=== PATIENT | male | born 1975 | race African-American/Black ===

== ENCOUNTER 2018-05-06 07:55 | Inpatient (IN) ==
[2018-05-06] MEDS ORDERED: Morphine Inj 4 MG/ML Vial IV.PUSH ONE (08:14)
--- NOTE | 2018-05-06 08:27 | ED ---
HPI General Chief Complaint: Chest Pain Stated Complaint: chest pain Time Seen by Provider: 05/06/18 08:14 Source: patient Mode of arrival: ambulatory Limitations: no limitations History of Present Illness HPI narrative: This is a 42-year-old male who presents to the emergency department with 4-5 days of constant chest discomfort in the upper chest bilaterally, nonradiating, associated with some intermittent nausea and shortness of breath. He also has had a productive cough with clear and yellow sputum. He denies any fevers or chills peer he has had some nasal congestion and sore throat. He initially thought he was sick with a cold. The pain gets worse when he coughs but he was unable to sleep last night secondary to the pain so he came to the emergency department. He is supposed to take something for blood pressure but is not currently on any medications. He denies hyperlipidemia, diabetes or drug use. He did smoke cigarettes for about 10 years. Related Data Home Medications Medication Instructions Recorded Confirmed No Known Home Medications 05/06/18 05/06/18 Allergies Allergy/AdvReac Type Severity Reaction Status Date / Time No Known Allergies Allergy Verified 05/06/18 08:00 Review of Systems ROS: all other systems reviewed are negative [facility] Medical History Medical History Hypertension (Acute) Social History Social History Substance History: No History of Abuse Smoking Status: Former smoker How Often Do You Have a Drink Containing Alcohol: 2 to 3 times a week Recent Travel in [facility] within the Last 8 Weeks: No Recent Out of Country Travel within the Last 8 Weeks: No Immunization History Tetanus Immunization: Unsure Exam Narrative Exam Narrative: GENERAL:Well appearing, no acute distress SKIN: Focused skin assessment warm and dry. HEAD: Atraumatic. Normocephalic. EYES: Pupils equal and round. No injection or drainage. ENT: Moist mucous membranes NECK: Trachea midline. CARDIOVASCULAR: Regular rate and rhythm. No murmur appreciated. RESPIRATORY: Clear to auscultation. Breath sounds equal bilaterally. GASTROINTESTINAL: Abdomen soft, non-tender, nondistended. MUSCULOSKELETAL: No obvious deformities. NEUROLOGICAL: Awake and alert. No obvious cranial nerve deficits. Moving all extremities. PSYCHIATRIC: Appropriate mood and affect; insight and judgment normal. Course Initial Documented Vital Signs Temperature 98.4 F 05/06/18 07:56 Pulse Rate 83 05/06/18 07:56 Respiratory Rate 20 05/06/18 07:56 Blood Pressure 218/140 H 05/06/18 07:56 Pulse Oximetry 97 05/06/18 07:56 Last Documented Vital Signs Temperature 98.4 F 05/06/18 07:56 Pulse Rate 86 05/06/18 09:10 Respiratory Rate 16 05/06/18 09:10 Blood Pressure 205/123 H 05/06/18 09:10 Pulse Oximetry 97 05/06/18 09:10 Medical Decision Making MDM Narrative Medical decision making narrative: This is a 42 year old male who presents to the emergency Department with 4-5 days of chest discomfort. His discomfort is somewhat pleuritic and he does have some upper respiratory symptoms, so this may reflect bronchitis or an infectious process, however given his hypertension a cardiac work-up was ordered. He was placed on a monitor and an IV was established. Labs are all reassuring. He Is markedly hypertensive and was given nitroglycerin and lisinopril. I am concerned because his EKG demonstrates biphasic ST segments in the lateral leads and we have no previous EKG. I think it is reasonable to obtain serial cardiac enzymes and consider stress test in this patient as his EKG could suggest ischemia, and this could be an atypical presentation of ACS. Medical Screen Exam Complete: Yes Emergency Medical Condition: Yes Lab Data Result diagrams: 05/06/18 08:30 05/06/18 08:30 Lab Results 05/06/18 05/06/18 Range/Units 08:30 08:30 WBC 4.8 (4.0-11.0) th/mm3 RBC 4.99 (4.50-5.90) mil/mm3 Hgb 14.8 (13.0-17.0) gm/dL Hct 44.3 (39.0-51.0) % MCV 88.9 (80.0-100.0) fL MCH 29.7 (27.0-34.0) pg MCHC 33.4 (32.0-36.0) % RDW 13.2 (11.6-17.2) % Plt Count 167 (150-450) th/mm3 MPV 9.2 (7.0-11.0) fL Neut % (Auto) 48.7 (16.0-70.0) % Lymph % (Auto) 41.4 (9.0-44.0) % [place] % (Auto) 8.2 H (0.0-8.0) % Eos % (Auto) 0.8 (0.0-4.0) % Baso % (Auto) 0.9 (0.0-2.0) % Neut # (Auto) 2.4 (1.8-7.7) th/mm3 Lymph # (Auto) 2.0 (1.0-4.8) th/mm3 [place] # (Auto) 0.4 (0.0-0.9) th/mm3 Eos # (Auto) 0.0 (0.0-0.4) th/mm3 Baso # (Auto) 0.0 (0.0-0.2) th/mm3 WBC Differential . Differential Comment Auto diff final Sodium 139 (136-145) meq/L Potassium 3.9 (3.5-5.1) meq/L Chloride 103 (98-107) meq/L Carbon Dioxide 27.8 (21.0-32.0) meq/L Anion Gap 8 (5-15) meq/L BUN 11 (7-18) mg/dL Creatinine 1.18 (0.60-1.30) mg/dL Estimated GFR 81 L (>89) mL/min Random Glucose 191 H (74-106) mg/dL Calcium 8.7 (8.5-10.1) mg/dL Total Bilirubin 0.4 (0.2-1.0) mg/dL AST 42 H (15-37) U/L ALT 101 H (12-78) U/L Alkaline Phosphatase 76 (45-117) U/L Troponin I Less than 0.02 L (0.02-0.05) ng/mL Total Protein 7.9 (6.4-8.2) g/dL Albumin 4.2 (3.4-5.0) g/dL Imaging Data Radiologist's impression: Chest X-Ray 05/06/18 08:15 CONCLUSION: Negative examination. ECG Data EKG Prior to Arrival: Yes Attestation: I personally reviewed and interpreted this ECG as follows: Prior ECG tracings: not available for review Interpretation: nsr, st elevation in V2 and V3, <2mV, with lateral t-wave depressions and concerning biphasic morphology of st segment in V5 suggesting ischemia. Discharge Plan Discharge Disposition Patient Disposition: ED Admit(ED Internal Use Only) Discharge Condition Condition: Stable Discharge Order Discharge Orders: ED Use Only Admit Order (Routine); Ordered 05/06/18 Ordered By: Samantha Jha Discharge Details Diagnosis: Atypical chest pain Physicians Team ED Provider: Samantha Jha Primary Care Provider: Primary Care Physici,No Rxs /Orders / Referrals /Forms Prescriptions: No Action No Known Home Medications RF: 0 Discharge Instructions Patient Printed Instructions: Chest Pain (ED) Status ED Status: With Doctor
--- NOTE | 2018-05-06 08:42 | XR ---
EXAM DATE: 05/06/2018 8:37 AM EST AGE/SEX: 42 years / Male INDICATIONS: Chest pain. CLINICAL DATA: This is the patient's initial encounter. Patient reports that signs and symptoms have been present for 2 days and indicates a pain score of 7/10. MEDICAL/SURGICAL HISTORY: None. None. COMPARISON: No prior exams available for comparison. FINDINGS: A single AP view of the chest demonstrates the lungs to be symmetrically aerated without evidence of mass, infiltrate or effusion. The cardiomediastinal contours are unremarkable. Osseous structures a re intact. CONCLUSION: Negative examination. Electronically signed by: Mackenzie De MD Board Certified Radiologist 05/06/2018 8:40 AM JORDI T
[2018-05-06 09:04] LABS: Baso % (Auto) 0.9 % (0.0-2.0); Eos % (Auto) 0.8 % (0.0-4.0); Hematocrit 44.3 % (39.0-51.0); Hemoglobin 14.8 gm/dL (13.0-17.0); Lymph % (Auto) 41.4 % (9.0-44.0); Mean Corpuscular HGB Conc 33.4 % (32.0-36.0); Mean Corpuscular Hemoglobin 29.7 pg (27.0-34.0); Mean Corpuscular Volume 88.9 fL (80.0-100.0); Mean Platelet Volume 9.2 fL (7.0-11.0); Mono # (Auto) 0.4 th/mm3 (0.0-0.9); Mono % (Auto) 8.2 % (0.0-8.0); Neut # (Auto) 2.4 th/mm3 (1.8-7.7); Neut % (Auto) 48.7 % (16.0-70.0); Platelet Count 167 th/mm3 (150-450); Red Blood Count 4.99 mil/mm3 (4.50-5.90); Red Cell Distribution Width 13.2 % (11.6-17.2); White Blood Count 4.8 th/mm3 (4.0-11.0)
[2018-05-06 09:29] LABS: Alanine Aminotransferase 101 U/L (12-78)
[2018-05-06 09:32] LABS: Alkaline Phosphatase 76 U/L (45-117); Total Protein 7.9 g/dL (6.4-8.2)
[2018-05-06 09:36] LABS: Albumin 4.2 g/dL (3.4-5.0); Anion Gap 8 meq/L (5-15); Aspartate Aminotransferase 42 U/L (15-37); Blood Urea Nitrogen 11 mg/dL (7-18); Calcium 8.7 mg/dL (8.5-10.1); Carbon Dioxide 27.8 meq/L (21.0-32.0); Chloride 103 meq/L (98-107); Glomerular Filtration Rate 81 mL/min (>89); Glucose,Random 191 mg/dL (74-106); Potassium 3.9 meq/L (3.5-5.1); Sodium 139 meq/L (136-145)
[2018-05-06] MEDS ORDERED: Lisinopril 20 MG Tablet PO ONE (09:44)
[2018-05-06] MEDS ORDERED: Acetaminophen 500 MG Tablet PO PRN (10:37)
[2018-05-06] MEDS ORDERED: amLODIPine 5 MG Tablet PO ONE (11:13)
--- NOTE | 2018-05-06 11:17 | P.HPCA ---
History of Present Illness Primary Care Physician: No Primary Care Physician Chief Complaint: Chest pain History of Present Illness: 42 year old male with history of hypertension, currently not taking medication, presents to ER for further evaluation of chest pain. Recently recovered from "chest cold" 5 days ago. 3 days ago developed generalized chest pain, more pronounced in sternum. Characterized as a sharp "like a knife ripping across my chest." No radiation. No associated symptoms of nausea, vomiting, dyspnea, or diaphoresis. Precipitating factors include coughing or laying on either side. Relieving factors include leaning over, such as on a counter. Laying flat does not make pain better or worse. Duration constant x3 days. Moderate in severity. Denies similar pain in the past. Sick contact include girlfriend and daughter. No known fever, no chills. Reports chest cold resolved with an occasional nonproductive cough. History of hypertension, unfortunately stopped blood pressure medications 2 years ago because "blood pressure normalized." Does not follow with a PCP. Past cardiac testing None Social history Known hypertension, does currently taking medication. No known diabetes or hyperlipidemia. Former "social" smoker, denies ever being a daily smoker. Rare alcohol use, maybe having 1 beer on while watching sports. No recreational drug use. 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 Family history Mother hypertension and diabetes, age 54 cause of uncertain. Vague members mother being diagnosed with some type of cardiac condition. - Diagnosis (1) Pericarditis (2) Hypertension (3) Elevated random blood glucose level Review of Systems All other systems reviewed negative except as stated in HPI [facility] - History History Provided By: Patient - Medical History Medical History: Medical History (Last Updated 05/06/18 @ 12:07 by YANELIS Rodriguez) Hypertension Obesity (BMI 30-39.9) - Family History Family History: Family History (Last Updated 05/06/18 @ 12:08 by YANELIS Rodriguez) Mother Type 2 diabetes mellitus Hypertension - Social History I have reviewed the patient's Social History: Yes - Tobacco History Second Hand Smoke Exposure: No Tobacco Use In Past 30 Days: No Smoking Status: Former smoker (reports former light tobacco smoker, occassional would smoke 1-2 cigarettes "sometimes") - Alcohol History How Often Do You Have a Drink Containing Alcohol: 2 to 3 times a week - Substance Use History Substance History: No History of Abuse - Travel History History of Recent Travel: No Recent Travel in the [place] Within the Last 8 Weeks: No Recent Travel Out of the Country Within the Last 8 Weeks: No - Immunization History Tetanus Immunization: Unsure Medications and Allergies Active Medications: Active Medications Acetaminophen (Tylenol) 500 mg PO Q4H PRN PRN Reason: HEADACHE Ondansetron HCl (Zofran Inj) 4 mg IV.PUSH Q6H PRN PRN Reason: NAUSEA Sodium Chloride (Ns Flush) 2 ml IV.FLUSH UNSCH PRN PRN Reason: FLUSH AFTER USING IV ACCESS Sodium Chloride (Ns Flush) 2 ml IV.FLUSH BID DANIELA Sodium Chloride (Ns Flush) 2 ml IV.FLUSH PRN PRN PRN Reason: FLUSH AFTER USING IV ACCESS Allergies Allergy/AdvReac Type Severity Reaction Status Date / Time No Known Allergies Allergy Verified 05/06/18 08:00 Home Medications Medication Instructions Recorded Confirmed Type No Known Home Medications 05/06/18 05/06/18 History Exam Vital signs: Vital Signs 05/06/18 07:56 05/06/18 08:17 05/06/18 09:10 Temperature 98.4 F Pulse Rate 83 86 Respiratory Rate 20 16 Blood Pressure 218/140 H 205/123 H Pulse Oximetry 97 97 97 05/06/18 10:37 Temperature Pulse Rate 62 Respiratory Rate 18 Blood Pressure 192/122 H Pulse Oximetry 100 Intake & Output 05/05/18 05/06/18 05/06/18 18:59 06:59 18:59 Weight 112.491 kg Narrative: GENERAL: Alert WN, WD, NAD, pleasant obese -Liber[place] male HEAD: NC, AT EYES: Sclera clear, conjunctiva without injection, pupils equal and round ENT: Mucous membranes pink and moist, no nasal discharge or bleeding NECK: Supple, no masses, trachea midline CV: RRR, 1/6 systolic murmur, faint pericardial rub, no JVD, S1-S2. No carotid bruits. Chest wall nontender to palpation. RESP: Clear lungs throughout bilateral, no crackles, wheeze, rhonchi, symmetrical chest rise, nonlabored, able to speak in full sentences ABD: Soft, NT, ND, no masses, positive bowel tones, obese BACK: No scoliosis EXT: Pulses +2x4, no dependent edema MS: Normal tone x4 extremities, nontender, no obvious deformities, full range of motion NEURO: Motor strength 5/5 PSYCH: A+O x3, pleasant affect, appropriate speech, mood, insight and judgment SKIN: Normal turgor, normal texture, no lesions, no rashes, brisk cap refill, even hair distribution Results 05/06/18 08:30 05/06/18 08:30 Cardiac Enzymes 05/06/18 Range/Units 08:30 AST 42 H (15-37) U/L Troponin I Less than 0.02 L (0.02-0.05) ng/mL CBC 05/06/18 Range/Units 08:30 WBC 4.8 (4.0-11.0) th/mm3 RBC 4.99 (4.50-5.90) mil/mm3 Hgb 14.8 (13.0-17.0) gm/dL Hct 44.3 (39.0-51.0) % Plt Count 167 (150-450) th/mm3 Neut # (Auto) 2.4 (1.8-7.7) th/mm3 Lymph # (Auto) 2.0 (1.0-4.8) th/mm3 [place] # (Auto) 0.4 (0.0-0.9) th/mm3 Eos # (Auto) 0.0 (0.0-0.4) th/mm3 Baso # (Auto) 0.0 (0.0-0.2) th/mm3 Comprehensive Metabolic Panel 05/06/18 Range/Units 08:30 Sodium 139 (136-145) meq/L Potassium 3.9 (3.5-5.1) meq/L Chloride 103 (98-107) meq/L Carbon Dioxide 27.8 (21.0-32.0) meq/L BUN 11 (7-18) mg/dL Creatinine 1.18 (0.60-1.30) mg/dL Calcium 8.7 (8.5-10.1) mg/dL AST 42 H (15-37) U/L ALT 101 H (12-78) U/L Alkaline Phosphatase 76 (45-117) U/L Total Protein 7.9 (6.4-8.2) g/dL Albumin 4.2 (3.4-5.0) g/dL Intake and Output 12/05/06/18 05/06/18 22:59 06:59 14:59 Other: Weight 112.491 kg Patient Weight 05/07/18 06:59 Weight 112.491 kg - Imaging and Cardiology Imaging: Impressions Chest X-Ray 05/06/18 08:15 CONCLUSION: Negative examination. EKG interpretations - EKG EKG results cardiology: sinus rhythm (LAD, criteria for LVH, T wave inversion v5 -v6, st changes V2-v4) Caprini VTE Risk Assessment Caprini VTE Risk Assessment: No/Low Risk (score <= 1) Caprini Risk Assessment Model: Point Value = 1 Point Value = 2 Point Value = 3 Point Value = 5 Age 41-60 Minor surgery BMI > 25 kg/m2 Swollen legs Varicose veins or History of unexplained or recurrent spontaneous Oral contraceptives or hormone replacement Sepsis (< 1 month) Serious lung disease, including pneumonia (< 1 month) Abnormal pulmonary function Acute myocardial infarction Congestive heart failure (< 1 month) History of inflammatory bowel disease Medical patient at bed rest Age 61-74 Arthroscopic surgery Major open surgery (> 45 min) Laparoscopic surgery (> 45 min) Malignancy Confined to bed (> 72 hours) Immobilizing plaster cast Central venous access Age >= 75 History of VTE Family history of VTE Factor V Leiden Prothrombin [id number] Lupus anticoagulant Anticardiolipin antibodies Elevated serum homocysteine Heparin-induced thrombocytopenia Other congenital or acquired thrombophilia Stroke (< 1 month) Elective arthroplasty Hip, pelvis, or leg fracture Acute spinal cord injury (< 1 month) Prophylaxis Regimen: Total Risk Factor Score Risk Level Prophylaxis Regimen 0-1 Low Early ambulation 2 Moderate Order ONE of the following: *Sequential Compression Device (SCD) *Heparin 5000 units SQ BID 3-4 Higher Order ONE of the following medications: *Heparin 5000 units SQ TID *Enoxaparin/Lovenox 40 mg SQ daily (WT < 150 kg, CrCl > 30 mL/min) *Enoxaparin/Lovenox 30 mg SQ daily (WT < 150 kg, CrCl > 10-29 mL/min) *Enoxaparin/Lovenox 30 mg SQ BID (WT < 150 kg, CrCl > 30 mL/min) AND/OR *Sequential Compression Device (SCD) 5 or more Highest Order ONE of the following medications: *Heparin 5000 units SQ TID (Preferred with Epidurals) *Enoxaparin/Lovenox 40 mg SQ daily (WT < 150 kg, CrCl > 30 mL/min) *Enoxaparin/Lovenox 30 mg SQ daily (WT < 150 kg, CrCl > 10-29 mL/min) *Enoxaparin/Lovenox 30 mg SQ BID (WT < 150 kg, CrCl > 30 mL/min) AND *Sequential Compression Device (SCD) Assessment and Plan - Assessment (1) Pericarditis Code(s): I31.9 - Disease of pericardium, unspecified Status: Acute Plan: Admitted to chest pain center. Rule out ACS with 2 sets of EKGs and cardiac enzymes. Seen and evaluated by Dr. Noam Felton. Symptoms suggestive of pericarditis. Obtain sed rate. Ibuprofen 800 mg x1 dose now. No further cardiac testing at this time due to acute process. After being ruled out with 2 sets of EKGs and cardiac enzymes plan to discharge home with high dose NSAIDS for 10 days. Instructed to establish with primary care provider for follow-up and to return to ER if he develops a fever of discomfort worsens. (2) Hypertension Code(s): I10 - Essential (primary) hypertension Status: Acute Plan: Discussed in length importance of tight blood pressure control and medication compliance. Lisinopril 20 mg given in ER. Amlodipine 5 mg x1 dose now. Clonidine 0.1 mg every 6 hours as needed for systolic blood pressure greater than 180 or diastolic blood pressure greater than 100. Current blood pressure 190/100. Continue to monitor. Encouraged establishing with primary care provider, weight loss, adhering to low-sodium diet, and increasing daily activity. Long-term possible effects of uncontrolled high blood pressure discussed in length. 1345-blood pressure ranging between sbp 220-230s dbp 110-140. Discussed with Dr. Felton. Plan to transfer service to hospitalist for hypertensive crisis and further monitoring. (3) Elevated random blood glucose level Code(s): R73.09 - Other abnormal glucose Status: Acute Plan: Random blood glucose level 191. Patient made aware and importance of establishing with a PCP for type II diabetes. Strongly encouraged dietary modifications, weight loss, and increasing daily activity. Verbalized understanding. (1) Pericarditis Qualifiers: Pericarditis type: unspecified type Chronicity: acute Qualified Code(s): I30.9 - Acute pericarditis, unspecified (2) Hypertension Qualifiers: Hypertension type: unspecified Qualified Code(s): I10 - Essential (primary) hypertension
--- NOTE | 2018-05-06 11:57 | P.PNCA ---
Subjective Interval history: 42-year-old black male seen in concert with the nurse practitioner. History is documented in her recording is accurate and appropriate. In essence he has a recent history of fairly sharp chest pain that developed following an apparent upper respiratory infection and cough. The pain is now somewhat positional suggestive of possible pericarditis. We also discussed his hypertension and need for ongoing therapy and monitoring. He has ruled out for ACS using standard protocol and because of his probable pericarditis is not a candidate for further evaluation or testing at this time. Medications and Allergies Active Medications: Active Medications Acetaminophen (Tylenol) 500 mg PO Q4H PRN PRN Reason: HEADACHE Amlodipine Besylate (Norvasc) 5 mg PO ONCE ONE Stop: 05/06/18 11:14 Clonidine HCl (Catapres) 0.1 mg PO Q6H PRN PRN Reason: SBP> OR = 180, DBP> OR = 100 Ondansetron HCl (Zofran Inj) 4 mg IV.PUSH Q6H PRN PRN Reason: NAUSEA Sodium Chloride (Ns Flush) 2 ml IV.FLUSH UNSCH PRN PRN Reason: FLUSH AFTER USING IV ACCESS Sodium Chloride (Ns Flush) 2 ml IV.FLUSH BID DANIELA Sodium Chloride (Ns Flush) 2 ml IV.FLUSH PRN PRN PRN Reason: FLUSH AFTER USING IV ACCESS Allergies Allergy/AdvReac Type Severity Reaction Status Date / Time No Known Allergies Allergy Verified 05/06/18 08:00 Home Medications Medication Instructions Recorded Confirmed Type No Known Home Medications 05/06/18 05/06/18 History Physical Exam Vital signs: Vital Signs 05/06/18 07:56 05/06/18 08:17 05/06/18 09:10 Temperature 98.4 F Pulse Rate 83 86 Respiratory Rate 20 16 Blood Pressure 218/140 H 205/123 H Pulse Oximetry 97 97 97 05/06/18 10:37 Temperature Pulse Rate 62 Respiratory Rate 18 Blood Pressure 192/122 H Pulse Oximetry 100 Intake & Output 05/05/18 05/06/18 05/06/18 18:59 06:59 18:59 Weight 112.491 kg Narrative: Obese black male resting comfortably in bed as long as he does not move. Head normocephalic atraumatic Skin warm and dry Eyes PERRLA EOMI sclera clear Mouth mucous membranes moist and well papillated no lesions Neck supple no JVD masses nodes or bruits Chest diminished breath sounds at the bases with some crackles on initial inspiration but this cleared Cardiovascular reveals a regular sinus rhythm very soft 1/6 systolic murmur and no gallop. However, in the left lateral decubitus position a very soft systolic rub was noted Abdomen soft obese nontender no guarding no rebound no hepatosplenomegaly or other masses noted. Extremities no clubbing cyanosis or edema Results 05/06/18 08:30 05/06/18 08:30 Cardiac Enzymes 05/06/18 Range/Units 08:30 AST 42 H (15-37) U/L Troponin I Less than 0.02 L (0.02-0.05) ng/mL CBC 05/06/18 Range/Units 08:30 WBC 4.8 (4.0-11.0) th/mm3 RBC 4.99 (4.50-5.90) mil/mm3 Hgb 14.8 (13.0-17.0) gm/dL Hct 44.3 (39.0-51.0) % Plt Count 167 (150-450) th/mm3 Neut # (Auto) 2.4 (1.8-7.7) th/mm3 Lymph # (Auto) 2.0 (1.0-4.8) th/mm3 [place] # (Auto) 0.4 (0.0-0.9) th/mm3 Eos # (Auto) 0.0 (0.0-0.4) th/mm3 Baso # (Auto) 0.0 (0.0-0.2) th/mm3 Comprehensive Metabolic Panel 05/06/18 Range/Units 08:30 Sodium 139 (136-145) meq/L Potassium 3.9 (3.5-5.1) meq/L Chloride 103 (98-107) meq/L Carbon Dioxide 27.8 (21.0-32.0) meq/L BUN 11 (7-18) mg/dL Creatinine 1.18 (0.60-1.30) mg/dL Calcium 8.7 (8.5-10.1) mg/dL AST 42 H (15-37) U/L ALT 101 H (12-78) U/L Alkaline Phosphatase 76 (45-117) U/L Total Protein 7.9 (6.4-8.2) g/dL Albumin 4.2 (3.4-5.0) g/dL Intake and Output 05/05/18 05/06/18 05/06/18 22:59 06:59 14:59 Other: Weight 112.491 kg Patient Weight 05/07/18 06:59 Weight 112.491 kg - Imaging and Cardiology Imaging: Impressions Chest X-Ray 05/06/18 08:15 CONCLUSION: Negative examination. Assessment and Plan - Plan This patient has ruled out for ACS and clinically presents as an upper respiratory infection followed by protracted cough and then pleuritic and positional chest pain suggestive of pericarditis. No further evaluation will be carried out during this visit but he is instructed to seek follow-up. He will be initiated on anti-inflammatory medication but is instructed to return if he develops a productive cough fever or progressive chest pain.
[2018-05-06 15:14] LABS: Creatine Kinase 149 U/L (39-308)
[2018-05-06] MEDS ORDERED: Bisacodyl 10 MG Supp RECTAL PRN (15:45)
--- NOTE | 2018-05-06 15:45 | P.PN ---
Subjective Interval history: 05/06: Initial consult received from emergency department regarding patient, hypertensive crisis and acute pericarditis. I telephoned and discussed case with Dr. Jha. At that time of the phone conversation, the blood pressure was more controlled with the antihypertensive medications he had received earlier and it was felt that the patient should be downgraded to the hospitalist service. I subsequently was consulted by the chest pain center, [place] and discussed the patient and it was felt the patient would be more appropriate to a hospitalist service at that time, after discussion with Dr Jha. Upon further evaluation, the patient's blood pressure was noted to become elevated , and I was contacted by Dr. Joaquim Richard, Hospitalist, regarding patient's new elevation in blood pressure request for consultation to [facility]. I then accepted consult and went to the ED to evaluate and admit the patient to ICU. Upon evaluation of the patient, the patient was noted to have a blood pressure at that time of 230/113. Patient denied blurry vision headaches or any neurologic symptomatology. I then obtained a medical history and performed a physical . I informed the patient that he would be transferred to the ICU for management of his hypertensive urgency, and possibly be placed on IV medications. The patient at that time asked how many more hours would he have to stay in the hospital as he had obligations. I then relayed to the patient that he was critically ill and in need of being placed in the ICU for close monitoring of his blood pressure. 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 I again urged the patient of the emergent nature of his physical illness and life- threatening elevation in blood pressure requiring ICU admission. The patient again told me that he has obligations and his 2 young daughters are dependent on them and they are awaiting him to pick them up. I informed Dr. Jha of the conversation, at this time no admission to the ICU as the patient refuses to be admitted to the hospital at this time. I informed her that the intensivists are available for reconsultation if needed. I contacted Dr. Joaquim Richard, hospitalist and informed him of the situation that the patient is requesting to go home due to from familial obligations and cannot be admitted to ICU and for management of his hypertensive crisis at this time. I again stressed to patient that it was important that he remain in the hospital and be treated for his life-threatening hypertension. The patient stated he understood but had obligations. After multiple conversations, with multiple physicians the patient agreed to be admitted to ICU. Physical Exam Vital signs: Vital Signs 05/06/18 07:56 05/06/18 08:17 05/06/18 09:10 Temperature 98.4 F Pulse Rate 83 86 Respiratory Rate 20 16 Blood Pressure 218/140 H 205/123 H Pulse Oximetry 97 97 97 05/06/18 10:37 05/06/18 13:08 Temperature Pulse Rate 62 Respiratory Rate 18 Blood Pressure 192/122 H 227/144 H Pulse Oximetry 100 Intake & Output 05/05/18 05/06/18 05/06/18 18:59 06:59 18:59 Weight 112.491 kg Results - Labs CBC & Chem 7: 05/06/18 08:30 05/06/18 08:30 Laboratory Results - last 24 hr 05/06/18 05/06/18 05/06/18 08:30 08:30 12:03 WBC 4.8 RBC 4.99 Hgb 14.8 Hct 44.3 MCV 88.9 MCH 29.7 MCHC 33.4 RDW 13.2 Plt Count 167 MPV 9.2 Neut % (Auto) 48.7 Lymph % (Auto) 41.4 [place] % (Auto) 8.2 H Eos % (Auto) 0.8 Baso % (Auto) 0.9 Neut # (Auto) 2.4 Lymph # (Auto) 2.0 [place] # (Auto) 0.4 Eos # (Auto) 0.0 Baso # (Auto) 0.0 WBC Differential . Differential Comment Auto diff final ESR 3 Sodium 139 Potassium 3.9 Chloride 103 Carbon Dioxide 27.8 Anion Gap 8 BUN 11 Creatinine 1.18 Estimated GFR 81 L Random Glucose 191 H Calcium 8.7 Total Bilirubin 0.4 AST 42 H ALT 101 H Alkaline Phosphatase 76 Total Creatine Kinase Troponin I Less than 0.02 L Total Protein 7.9 Albumin 4.2 05/06/18 13:48 WBC RBC Hgb Hct MCV MCH MCHC RDW Plt Count MPV Neut % (Auto) Lymph % (Auto) [place] % (Auto) Eos % (Auto) Baso % (Auto) Neut # (Auto) Lymph # (Auto) [place] # (Auto) Eos # (Auto) Baso # (Auto) WBC Differential Differential Comment ESR Sodium Potassium Chloride Carbon Dioxide Anion Gap BUN Creatinine Estimated GFR Random Glucose Calcium Total Bilirubin AST ALT Alkaline Phosphatase Total Creatine Kinase 149 Troponin I Less than 0.02 L Total Protein Albumin - Imaging Impressions Chest X-Ray 05/06/18 08:15 CONCLUSION: Negative examination.
[2018-05-06] MEDS ORDERED: niCARdipine Inj 25 MG in Sodium Chlor 0.9% Inj 240 ML IV.CONT PRN (15:54)
--- NOTE | 2018-05-06 16:15 | P.CONCC ---
History of Present Illness Consult date: 05/06/18 Requesting Physician: Joaquim Richard Reason for Consult: Hypertensive Urgency Primary Care Provider: No Primary Care Physician Chief Complaint: Chest pain History of Present Illness: This is a 42-year-old -Finnish male that presented to the chests the ED with complaints of sharp atypical chest pain. The patient was evaluated by the chest pain center and it was felt that the patient had acute pericarditis. In the ED the patient received narcotics and NSAIDs. The patient was noted to have an elevated blood pressure systolic blood pressure in the 200s the patient received several doses of clonidine orally in the a.m. with subsequent decrease in blood pressure appear patient was initially thought to be appropriate for [facility] floor being the blood pressure was then controlled however later in the day the patient's blood pressure began to escalate. Upon my evaluation the patient's blood pressure was 230/113. Patient was scheduled to be admitted to the ICU initially refusing but then subsequently after extensive discussion regarding the life-threatening elevation in blood pressure agreed to be admitted to the ICU. Patient denies any significant past medical history. Review of Systems All other systems reviewed negative except as stated [facility] - History History Provided By: Patient - Medical History Medical History: Medical History (Last Updated 05/06/18 @ 12:07 by YANELIS Rodriguez) Hypertension Obesity (BMI 30-39.9) - Family History Family History: Family History (Last Updated 05/06/18 @ 12:08 by YANELIS Rodriguez) Mother Type 2 diabetes mellitus Hypertension - Tobacco History Second Hand Smoke Exposure: No Tobacco Use In Past 30 Days: No Smoking Status: Former smoker (reports former light tobacco smoker, occassional would smoke 1-2 cigarettes "sometimes") - Alcohol History How Often Do You Have a Drink Containing Alcohol: 2 to 3 times a week - Substance Use History Substance History: No History of Abuse - Travel History History of Recent Travel: No Recent Travel in the [place] Within the Last 8 Weeks: No Recent Travel Out of the Country Within the Last 8 Weeks: No - Immunization History Tetanus Immunization: Unsure Medications and Allergies Active Medications: Active Medications Acetaminophen (Tylenol) 500 mg PO Q4H PRN PRN Reason: HEADACHE Al Hydroxide/Mg Hydroxide (Milk Of Magnesia Liq) 30 ml PO Q12H PRN PRN Reason: Mild Constipation Amlodipine Besylate (Norvasc) 10 mg PO DAILY DANIELA Bisacodyl (Dulcolax Supp) 10 mg RECTAL DAILY PRN PRN Reason: SEVERE CONSITIPATION Chlorhexidine Gluconate (Chlorhexidine 2% Cloth) 3 pack TOPICAL DAILY@0400 DANIELA Stop: 05/12/18 03:59 Chlorhexidine Gluconate (Chlorhexidine 2% Cloth) 3 pack TOPICAL DAILY@0400 PRN PRN Reason: Extra cloth needed Stop: 05/12/18 03:59 Clonidine HCl (Catapres) 0.1 mg PO Q6H PRN PRN Reason: SBP> OR = 180, DBP> OR = 100 Famotidine (Pepcid) 20 mg PO BID DANIELA Famotidine (Pepcid Pf Inj) 20 mg IV.PUSH Q12HR DANIELA Hydralazine HCl (Apresoline Inj) 20 mg IV.PUSH Q4H PRN PRN Reason: SYS BP GREATER THAN 160 MMHG Nicardipine HCl 25 mg/ Sodium (Chloride) 250 mls @ 50 mls/hr IV.CONT TITRATE PRN; Protocol PRN Reason: Per Protocol Labetalol HCl (Trandate) 200 mg PO BID [facility] Lactulose (Lactulose Liq) 30 ml PO DAILY PRN PRN Reason: SEVERE CONSITIPATION Lisinopril (Prinivil) 10 mg PO BID DANIELA Ondansetron HCl (Zofran Inj) 4 mg IV.PUSH Q6H PRN PRN Reason: NAUSEA Senna/Docusate Sodium (Madeline-Colace) 1 tab PO BID [facility] Sennosides (Senokot) 17.2 mg PO Q12H PRN PRN Reason: Moderate Constipation Sodium Chloride (Ns Flush) 2 ml IV.FLUSH UNSCH PRN PRN Reason: FLUSH AFTER USING IV ACCESS Sodium Chloride (Ns Flush) 2 ml IV.FLUSH BID DANIELA Sodium Chloride (Ns Flush) 2 ml IV.FLUSH PRN PRN PRN Reason: FLUSH AFTER USING IV ACCESS Sodium Chloride (Ns Flush) 2 ml IV.FLUSH BID DANIELA Sodium Chloride (Ns Flush) 2 ml IV.FLUSH PRN PRN PRN Reason: FLUSH AFTER USING IV ACCESS Allergies Allergy/AdvReac Type Severity Reaction Status Date / Time No Known Allergies Allergy Verified 05/06/18 08:00 Home Medications Medication Instructions Recorded Confirmed Type No Known Home Medications 05/06/18 05/06/18 History Physical Exam Vital signs: Vital Signs 05/06/18 07:56 05/06/18 08:17 05/06/18 09:10 Temperature 98.4 F Pulse Rate 83 86 Respiratory Rate 20 16 Blood Pressure 218/140 H 205/123 H Pulse Oximetry 97 97 97 05/06/18 10:37 05/06/18 13:08 Temperature Pulse Rate 62 Respiratory Rate 18 Blood Pressure 192/122 H 227/144 H Pulse Oximetry 100 Intake & Output 05/05/18 05/06/18 05/06/18 18:59 06:59 18:59 Weight 112.491 kg - Constitutional no acute distress, obese - Routine HEENT Exam Head: Present: normocephalic Eye: Present: EOMI, PERRL, normal accommodation ENT: Present: mucous membranes moist, dentition normal, nares patent, external ear normal - Routine Neck Exam Present: supple, full ROM - Routine Respiratory Exam Present: CTA bilaterally - Routine Cardiovascular Exam Present: RRR, S1, S2 - Routine Abdominal Exam Present: soft, normoactive bowel sounds (obese) - Routine Extremities Exam Present: full ROM, pulses intact - Routine Skin Exam Present: intact (warm) - Routine Neurological Exam Present: alert, oriented X3, CN II-XII intact, normal reflexes, normal speech - Detailed Neurological Exam: Coma Scale Eye Opening: Spontaneous Verbal Response: Oriented Motor Response: Obey commands Clark Coma Scale Total: 15 - Routine Psychiatric Exam Present: normal affect, normal thought process, cooperative, good insight, good judgment Assessment and Plan - Problem List (1) Hypertensive crisis without congestive heart failure Code(s): I16.9 - Hypertensive crisis, unspecified Status: Acute - Assessment and Plan Plan: Assessment This is a 42-year-old -Finnish male recently with a resolving viral illness with complaints of sharp chest pain thought to be secondary to acute pericarditis now with hypertensive crisis. Patient's blood pressure is significantly elevated, we will admit to ICU. The patient is critically ill. Plan by systems: Neurologic: Neuro checks per ICU protocol Respiratory: Maintain O2 saturation greater than 92% Cardiovascular: Hypertensive crisis Pericarditis Patient received 2 doses of clonidine in the ED, and 1 dose of Norvasc Initiate nicardipine infusion-maintain systolic blood pressure 140-160, patient notably elevated, most likely not normal ranges are elevated Initiating doses of Lopressor 200 mg twice daily, Norvasc 10 mg/day, lisinopril 10 mg twice daily. Provide hydralazine 10 mg every 4 hours as needed for systolic blood pressure greater than 160 and begin weaning nicardipine infusion off Continue ASA Renal: Does not require meet the requirements for Pittman catheter -- Strict I/Os FEN/GI: Cardiac diet Zofran for nausea Famotidine p.o. twice daily Obtain hemoglobin A1c Heme/ID: Monitor CBC No indications for cultures at this time Endocrine: Glucose monitoring per ICU protocol -- SSI Prophylaxis: GI Prophylaxis Famotidine DVT Prophylaxis -- SCDs Heparin 5000 units every 8 hours Lines: Peripheral IVs providing adequate access Dispo: My billing statement This patient remains critically ill with one or more organ systems which are or may become a threat to life. I have spent in excess of 69 minutes discontinuously in the care and management of this patient. This time is exclusive of procedures, and includes, but is not limited to, evaluation of the patient, review of the medical record, discussions with family, consultants, nursing staff, or respiratory therapy, and documentation in the medical record. Code Status: Full Discussed Condition With: Dr. Joaquim Richard, Dr. Samantha Jha, chest pain center COMMUNICATION CENTER COORDINATOR, and SYSTEMS TESTER at bedside
[2018-05-06] MEDS ORDERED: Dextrose 50% in Water 50 ML Vial IV.PUSH PRN (16:19)
[2018-05-06] MEDS: Insulin NovoLOG Aspart Correctional Sugar Inj SQ SCH ×2 (17:10→21:22)
--- NOTE | 2018-05-06 18:00 | ECG ---
Date Performed: 05/06/2018 Time Performed: 08:06:16 PTAGE: 42 years EKG: Sinus rhythm POSSIBLE LEFT ATRIAL ENLARGEMENT MARKED LEFT AXIS DEVIATION POSSIBLE RIGHT VENTRICULAR CONDUCTION DE LAY LEFT VENTRICULAR HYPERTROPHY AND ST-T CHANGE ABNORMAL ECG NO PREVIOUS TRACING DOCTOR: Alex Lazo Interpretating Date/Time 05/06/2018 17:57:48
--- NOTE | 2018-05-06 18:05 | ECG ---
Date Performed: 05/06/2018 Time Performed: 09:36:34 PTAGE: 42 years EKG: Sinus rhythm POSSIBLE LEFT ATRIAL ENLARGEMENT MARKED LEFT AXIS DEVIATION POSSIBLE RIGHT VENTRICULAR CONDUCTION DE LAY POSSIBLE LEFT VENTRICULAR HYPERTROPHY ST DEVIATION AND MODERATE T-WAVE ABNORMALITY, CONSIDER LATE RAL ISCHEMIA Since the previous tracing, no significant change noted ABNORMAL ECG PREVIOUS TRACING : 05/06/2018 08.19 DOCTOR: Alex Lazo Interpretating Date/Time 05/06/2018 18:03:17
--- NOTE | 2018-05-06 18:05 | ECG ---
Date Performed: 05/06/2018 Time Performed: 08:19:38 PTAGE: 42 years EKG: Sinus rhythm POSSIBLE LEFT ATRIAL ENLARGEMENT MARKED LEFT AXIS DEVIATION POSSIBLE RIGHT VENTRICULAR CONDUCTION DE LAY LEFT VENTRICULAR HYPERTROPHY AND ST-T CHANGE Since the previous tracing, no significant change no sampson ABNORMAL ECG PREVIOUS TRACING : 05/06/2018 08.06 DOCTOR: Alex Lazo Interpretating Date/Time 05/06/2018 18:03:48
[2018-05-06] MEDS: hydrALAZINE HCl Inj 20 MG/ML Vial IV.PUSH PRN (19:59)
[2018-05-06] MEDS: Lisinopril 10 MG Tablet PO SCH (20:01)
[2018-05-06] MEDS: Labetalol 200 MG Tablet PO SCH (20:01)
[2018-05-06] MEDS: Famotidine 20 MG Tablet PO SCH (20:01)
[2018-05-06] MEDS: Senna/Docusate Sodium 8.6/50 MG Tablet PO SCH (20:01)
[2018-05-06 20:17] LABS: Creatine Kinase 133 U/L (39-308)
[2018-05-06] MEDS ORDERED: Famotidine PF Inj 20 MG/2 ML Vial IV.PUSH SCH (21:00)
[2018-05-06] MEDS: Heparin - SQ 10,000 UNITS/ML Vial SQ SCH (21:21)
[2018-05-07] MEDS: hydrALAZINE HCl Inj 20 MG/ML Vial IV.PUSH PRN (03:15)
[2018-05-07] MEDS ORDERED: Chlorhexidine Gluconate 2% 1 Pack (2 Cloths) TOPICAL PRN (04:00)
[2018-05-07] MEDS: Chlorhexidine Gluconate 2% 1 Pack (2 Cloths) TOPICAL SCH (05:28)
[2018-05-07] MEDS: Heparin - SQ 10,000 UNITS/ML Vial SQ SCH ×3 (05:29→21:38)
[2018-05-07] MEDS: Famotidine 20 MG Tablet PO SCH ×2 (08:14→21:38)
[2018-05-07] MEDS: Senna/Docusate Sodium 8.6/50 MG Tablet PO SCH ×2 (08:14→21:38)
[2018-05-07] MEDS: amLODIPine 10 MG Tablet PO SCH (08:14)
[2018-05-07] MEDS: Insulin NovoLOG Aspart Correctional Sugar Inj SQ SCH ×4 (08:17→21:45)
[2018-05-07 08:59] LABS: Baso # (Auto) 0.1 th/mm3 (0.0-0.2); Baso % (Auto) 0.9 % (0.0-2.0); Eos % (Auto) 0.2 % (0.0-4.0); Hematocrit 43.2 % (39.0-51.0); Hemoglobin 14.7 gm/dL (13.0-17.0); Lymph # (Auto) 1.6 th/mm3 (1.0-4.8); Lymph % (Auto) 28.5 % (9.0-44.0); Mean Corpuscular HGB Conc 34.1 % (32.0-36.0); Mean Corpuscular Hemoglobin 30.6 pg (27.0-34.0); Mean Platelet Volume 9.4 fL (7.0-11.0); Mono # (Auto) 0.3 th/mm3 (0.0-0.9); Mono % (Auto) 5.6 % (0.0-8.0); Neut # (Auto) 3.6 th/mm3 (1.8-7.7); Neut % (Auto) 64.8 % (16.0-70.0); Platelet Count 179 th/mm3 (150-450); Red Cell Distribution Width 13.6 % (11.6-17.2); White Blood Count 5.6 th/mm3 (4.0-11.0)
[2018-05-07 09:19] LABS: Magnesium 2.1 mg/dL (1.5-2.5); Phosphorus 3.6 mg/dL (2.5-4.9)
[2018-05-07] MEDS: Labetalol 200 MG Tablet PO SCH (09:24)
--- NOTE | 2018-05-07 09:27 | P.PNCC ---
Subjective Subjective Remarks/Hospital Course: This is a 42-year-old -[place] male that presented to the chests the ED with complaints of sharp atypical chest pain. The patient was evaluated by the chest pain center and it was felt that the patient had acute pericarditis. In the ED the patient received narcotics and NSAIDs. The patient was noted to have an elevated blood pressure systolic blood pressure in the 200s the patient received several doses of clonidine orally in the a.m. with subsequent decrease in blood pressure appear patient was initially thought to be appropriate for [facility] floor being the blood pressure was then controlled however later in the day the patient's blood pressure began to escalate. Upon my evaluation the patient's blood pressure was 230/113. Patient was scheduled to be admitted to the ICU initially refusing but then subsequently after extensive discussion regarding the life-threatening elevation in blood pressure agreed to be admitted to the ICU. Patient denies any significant past medical history. 05/07: Patient's blood pressure is reasonably well controlled today. However after the administration of 3 antihypertensives patient had an episode of systolic blood pressure being low in the 80s with near syncopal episode. I will discontinue scheduled labetalol and reduce lisinopril to 5 mg twice daily Objective Vital Signs / I&O: Vital Signs 05/06/18 10:37 05/06/18 13:08 05/06/18 18:00 Temperature Pulse Rate 62 81 Respiratory Rate 18 Blood Pressure 192/122 H 227/144 H Pulse Oximetry 100 05/06/18 19:20 05/06/18 20:00 05/06/18 20:01 Temperature 98.7 F Pulse Rate 78 72 73 Respiratory Rate 18 18 18 Blood Pressure 134/62 Pulse Oximetry 90 L 100 100 05/06/18 20:03 05/06/18 20:49 05/06/18 20:57 Temperature Pulse Rate 70 58 L 68 Respiratory Rate 18 22 16 Blood Pressure 133/73 84/51 L 156/66 H Pulse Oximetry 100 97 93 L 05/06/18 21:00 05/06/18 21:01 05/06/18 21:16 Temperature Pulse Rate 69 74 80 Respiratory Rate 18 16 24 Blood Pressure 160/70 H 160/70 H 94/68 L Pulse Oximetry 96 94 L 95 05/06/18 21:31 05/06/18 21:45 05/06/18 22:00 Temperature Pulse Rate 71 69 72 Respiratory Rate 22 21 22 Blood Pressure 124/70 121/67 Pulse Oximetry 92 L 91 L 91 L 05/06/18 22:04 05/06/18 22:16 05/06/18 22:31 Temperature Pulse Rate 72 76 77 Respiratory Rate 21 22 20 Blood Pressure 156/78 H 145/69 H 168/92 H Pulse Oximetry 92 L 95 92 L 05/06/18 22:45 05/06/18 23:00 05/06/18 23:01 Temperature Pulse Rate 78 76 75 Respiratory Rate 13 17 18 Blood Pressure 161/86 H 174/89 H Pulse Oximetry 96 94 L 93 L 05/06/18 23:16 05/06/18 23:40 05/07/18 00:00 Temperature 97.9 F Pulse Rate 76 72 75 Respiratory Rate 18 22 21 Blood Pressure 184/67 H 164/89 H 142/92 H Pulse Oximetry 92 L 94 L 92 L 05/07/18 00:30 05/07/18 01:00 05/07/18 01:30 Temperature Pulse Rate 79 74 70 Respiratory Rate 33 H 20 23 Blood Pressure 141/75 H 145/95 H 130/85 Pulse Oximetry 98 98 92 L 05/07/18 02:00 05/07/18 02:30 05/07/18 03:00 Temperature Pulse Rate 70 83 75 Respiratory Rate 19 30 H 15 Blood Pressure 147/105 H 136/93 H 186/112 H Pulse Oximetry 95 98 96 05/07/18 03:03 05/07/18 03:22 05/07/18 03:30 Temperature Pulse Rate 76 72 78 Respiratory Rate 23 22 26 H Blood Pressure 176/102 H 163/84 H 158/67 H Pulse Oximetry 97 93 L 94 L 05/07/18 04:00 05/07/18 04:01 05/07/18 06:00 Temperature 97.3 F L Pulse Rate 83 82 73 Respiratory Rate 17 24 Blood Pressure 135/68 Pulse Oximetry 96 96 05/07/18 07:10 Temperature Pulse Rate Respiratory Rate Blood Pressure Pulse Oximetry 96 Intake & Output 05/06/18 05/07/18 05/07/18 18:59 06:59 18:59 Intake Total 0 / 0 50 / 50 Output Total 900 / 900 Balance 0 / 0 -850 / -850 Weight 112 kg 111.6 kg Intake: Oral 0 / 0 50 / 50 Output: Urine 900 / 900 Other: # Voids 1 Date of Last Bowel Movement 05/07/18 # Bowel Movements 0 1 # Incontinent Bowel Movements 0 Weight On Admission 112 kg Result Diagrams: 05/07/18 08:26 05/06/18 08:30 Objective Remarks: - Constitutional no acute distress, obese. Sitting up in chair - Routine HEENT Exam Head: Present: normocephalic Eye: Present: EOMI, PERRL, normal accommodation ENT: Present: mucous membranes moist, dentition normal - Routine Neck Exam Present: supple, full ROM - Routine Respiratory Exam Present: CTA bilaterally - Routine Cardiovascular Exam Present: RRR, S1, S2 - Routine Abdominal Exam Present: soft, normoactive bowel sounds - Routine Extremities Exam Present: full ROM, pulses intact - Routine Skin Exam Present: intact (warm) - Routine Neurological Exam Present: alert, oriented X3, CN II-XII intact, normal reflexes, normal speech Assessment and Plan - Problem List (1) Hypertensive crisis without congestive heart failure Code(s): I16.9 - Hypertensive crisis, unspecified Status: Acute - Assessment and Plan Plan: Assessment This is a 42-year-old -[place] male recently with a resolving viral illness with complaints of sharp chest pain thought to be secondary to acute pericarditis now with hypertensive crisis. Patient's blood pressure is significantly elevated, we will admit to ICU. The patient is critically ill. Plan by systems: Neurologic: Neuro checks per ICU protocol Respiratory: Maintain O2 saturation greater than 92% Cardiovascular: Hypertensive crisis Probable pericarditis Patient received 2 doses of clonidine in the ED, and 1 dose of Norvasc Discontinue nicardipine infusion, had been off for several hours Continue Norvasc 10 mg/day, lisinopril 10 mg twice daily-reduce to 5 mg twice daily. Continue clonidine 0.1 mg every 8 hours. Discontinue labetalol Provide hydralazine 10 mg every 4 hours as needed for systolic blood pressure greater than 160 and begin weaning nicardipine infusion off Continue ASA Check 2D echo Renal: Does not require meet the requirements for Pittman catheter -- Strict I/Os FEN/GI: Cardiac diet Zofran for nausea Famotidine p.o. twice daily Obtain hemoglobin A1c Heme/ID: Monitor CBC No indications for cultures at this time Endocrine: Glucose monitoring per ICU protocol -- SSI Prophylaxis: GI Prophylaxis Famotidine DVT Prophylaxis -- SCDs Heparin 5000 units every 8 hours Lines: Peripheral IVs providing adequate access Dispo: My billing statement Level 2 Consult hospitalist to assume care 05/08/18. Transfer to [facility] with telemetry
[2018-05-07] MEDS: Lisinopril 5 MG Tablet PO SCH ×2 (10:48→21:38)
[2018-05-07 13:33] LABS: Hemoglobin A1c 9.1 % (4.3-6.0)
[2018-05-07] MEDS: Lisinopril 10 MG Tablet PO SCH (14:10)
--- NOTE | 2018-05-07 15:07 | ECHRPT ---
Indication: CHEST PAIN CONCLUSIONS The left ventricular systolic function is low normal with an estimated ejection fraction in the rang e of 50- 55%. Normal left ventricular size. Moderate concentric left ventricular hypertrophy. No regional wall motion abnormalities are present. Trivial pulmonary valve regurgitation. BP: / HR: Rhythm: Sinus MEASUREMENTS (Male / Female) Normal Values Technical Quality:Fair 2D ECHO LV Diastolic Diameter PLAX 4.5 cm 4.2 - 5.9 / 3.9 - 5.3 cm LV Systolic Diameter PLAX 3.5 cm IVS Diastolic Thickness 1.7 cm 0.6 - 1.0 / 0.6 - 0.9 cm LVPW Diastolic Thickness 1.7 cm 0.6 - 1.0 / 0.6 - 0.9 cm LV Relative Wall Thickness 0.8 LVOT Diameter 1.9 cm LA Systolic Diameter LX 3.8 cm 3.0 - 4.0 / 2.7 - 3.8 cm LV Ejection Fraction MOD 4C 55.5 % LV Ejection Fraction 4C AL 56.4 % M-MODE Aortic Root Diameter MM 3.0 cm LA Systolic Diameter MM 3.7 cm LA Ao Ratio MM 1.2 AV Cusp Separation MM 2.5 cm DOPPLER AV Peak Velocity 162.0 cm/s AV Peak Gradient 10.5 mmHg LVOT Peak Velocity 133.0 cm/s LVOT Peak Gradient 7.1 mmHg AV Area Cont Eq pk 2.3 cm MV Area PHT 5.6 cm Mitral E Point Velocity 75.5 cm/s Mitral A Point Velocity 68.1 cm/s Mitral E to A Ratio 1.1 LV E' Lateral Velocity 5.6 cm/s Mitral E to LV E' Lateral Ratio 13.6 LV E' Septal Velocity 7.1 cm/s Mitral E to LV E' Septal Ratio 10.6 PV Peak Velocity 107.0 cm/s PV Peak Gradient 4.6 mmHg FINDINGS LEFT VENTRICLE The left ventricular systolic function is low normal with an estimated ejection fraction in the rang e of 50- 55%. Normal left ventricular size. Moderate concentric left ventricular hypertrophy. No regional wall motion abnormalities are present. RIGHT VENTRICLE Normal right ventricular size and systolic function. LEFT ATRIUM The left atrial size is normal. RIGHT ATRIUM The right atrial size is normal. ATRIAL SEPTUM Normal atrial septal thickness without atrial level shunting by limited color doppler interrogation. AORTA The aortic root and proximal ascending aorta are normal in size on limited imaging. MITRAL VALVE Structurally normal mitral valve. No mitral valve stenosis or regurgitation. AORTIC VALVE Trileaflet aortic valve. No aortic valve stenosis or regurgitation. TRICUSPID VALVE Structurally normal tricuspid valve. No tricuspid valve stenosis or regurgitation. PULMONARY VALVE Trivial pulmonary valve regurgitation. VESSELS The inferior vena cava is normal in size. PERICARDIUM No pericardial effusion. Iker Lagunas MD (Electronically Signed) Final Date:07 May 2018 15:05
[2018-05-08] MEDS: Chlorhexidine Gluconate 2% 1 Pack (2 Cloths) TOPICAL SCH (03:23)
[2018-05-08] MEDS: Heparin - SQ 10,000 UNITS/ML Vial SQ SCH ×3 (05:38→13:07)
[2018-05-08] MEDS: Lisinopril 5 MG Tablet PO SCH ×2 (07:49→08:27)
[2018-05-08] MEDS: amLODIPine 10 MG Tablet PO SCH ×2 (07:49→08:27)
[2018-05-08] MEDS: Senna/Docusate Sodium 8.6/50 MG Tablet PO SCH ×2 (07:49→08:27)
[2018-05-08] MEDS: Famotidine 20 MG Tablet PO SCH ×2 (07:49→08:27)
[2018-05-08] MEDS: Insulin NovoLOG Aspart Correctional Sugar Inj SQ SCH ×2 (07:59→12:13)
[2018-05-08] MEDS ORDERED: Lisinopril 10 MG Tablet PO SCH (11:14)
--- NOTE | 2018-05-08 14:31 | P.DS ---
DS: Providers Date of admission: 05/06/18 15:45 Primary care physician: No Primary Care Physician Consults: 05/06/18 13:48 Consult to Hospitalist Routine Consulting Provider: Joaquim Richard Reason for Consultation: hypertensive crisis Notified:: Service Spoke with:: JAIRO Date Notified:: 05/06/18 Time Notified:: 13:52 Ordering Provider: MARTY 05/06/18 14:08 Consult to Professor Of Medicine Routine Consulting Provider: Nan Navarro Reason for Consultation: hypertensive emergency Notified:: Service Spoke with:: ginny Date Notified:: 05/06/18 Time Notified:: 14:14 Ordering Provider: MARTY 05/07/18 09:22 Consult to Hospitalist Routine Consulting Provider: Delphine Sandoval Reason for Consultation: Assume care in am 05/08/18 Notified:: Service Spoke with:: Jose Guadalupe Date Notified:: 05/07/18 Time Notified:: 09:25 Comments:: waiting transportation maintenance operator back --[place] [id number] Ordering Provider: LUCIA Brief History from admission: 42 year old male with history of hypertension, currently not taking medication, presents to ER for further evaluation of chest pain. Recently recovered from "chest cold" 5 days ago. 3 days ago developed generalized chest pain, more pronounced in sternum. Characterized as a sharp "like a knife ripping across my chest." No radiation. No associated symptoms of nausea, vomiting, dyspnea, or diaphoresis. Precipitating factors include coughing or laying on either side. Relieving factors include leaning over, such as on a counter. Laying flat does not make pain better or worse. Duration constant x3 days. Moderate in severity. Denies similar pain in the past. Sick contact include girlfriend and daughter. No known fever, no chills. Reports chest cold resolved with an occasional nonproductive cough. History of hypertension, unfortunately stopped blood pressure medications 2 years ago because "blood pressure normalized." Does not follow with a PCP. Past cardiac testing None Social history Known hypertension, does currently taking medication. No known diabetes or hyperlipidemia. Former "social" smoker, denies ever being a daily smoker. Rare alcohol use, maybe having 1 beer on Tuesday's while watching sports. No recreational drug use. 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 Family history Mother hypertension and diabetes, age 54 cause of uncertain. Vague members mother being diagnosed with some type of cardiac condition. DS: Diagnosis Discharge Diagnosis (1) Hypertensive crisis without congestive heart failure: Status: Acute DS: Summary Patient was admitted for blood pressure control, his medications were titrated he had an episode of near syncope and blood pressures were noted to be a bit low so medications required further adjustment. Patient also was found to have a hemoglobin A1c of over 9, and diabetic education was instituted, he was counseled at length regarding medication compliance and close follow-up. Blood pressures were much better controlled patient's sugars were controlled he was counseled at length regarding close outpatient follow-up compliance of medications and he was discharged in stable condition. Time Spent with Patient Total time spent providing and/or coordinating discharge services: Status at Discharge Functional status at discharge: independent ambulation Quality: VTE Deep Vein Thrombosis/Pulmonary Embolism Present on Admission: No Exam Narrative Exam Narrative: Well-developed well-nourished 42-year-old -Irish male Awake alert oriented no acute distress Heart S1-S2 regular Lungs clear bilateral no wheeze no rhonchi Abdomen soft nondistended positive bowel sounds He remedies no clubbing cyanosis no edema Results Labs on day of discharge: Labs from last 24 hours 05/08/18 05/08/18 05/08/18 12:04 07:52 03:28 POC Glucose 220 H 169 H 228 H 05/07/18 05/07/18 21:37 16:52 POC Glucose 267 H 163 H Impressions ITS Impressions Chest X-Ray 05/06/18 08:15 CONCLUSION: Negative examination. Discharge Plan Discharge Disposition Patient Disposition: 01 Discharge Home Discharge Condition Condition: Stable Discharge Order Discharge Orders: Discharge Order (Routine); Ordered 05/08/18 Ordered By: Latricia Witt Discharge Details Anticipated Discharge Date: 05/08/18 Discharge Comment: ok to dc home after outside operator/diabetic education Physicians Team Primary Care Provider: Primary Care Sorin,Anna Attending Provider: Latricia Witt Other Providers: Nan Navarro Rxs /Orders / Referrals /Forms Prescriptions: New clonidine HCl [Catapres] 0.1 mg Tablet 0.1 mg PO Q8HR Qty: 90 RF: 0 metformin [Glucophage] 500 mg Tablet 500 mg PO BIDPC Qty: 60 RF: 0 amlodipine [Norvasc] 10 mg Tablet 10 mg PO DAILY Qty: 30 RF: 0 blood-glucose meter [Gluco Navii Glucose Monitor] kit .ROUTE .MEDSUPPLY Qty: 1 RF: 0 blood sugar diagnostic [Gluco Navii Test Strip] strip .ROUTE .MEDSUPPLY Qty: 10 RF: 0 lancets misc .ROUTE .MEDSUPPLY Qty: 50 RF: 0 lisinopril 10 mg Tablet 10 mg PO BID Qty: 60 RF: 0 No Action No Known Home Medications RF: 0 Referrals: [facility] [Outside] - See Instructions ( Please call the physician's office to book the appointment to be seen within [2-3d].) Primary Care Physici,No [Primary Care Provider] - See Instructions Discharge Instructions Patient Printed Instructions: Chest Pain (ED), Smelter Operator revisar el azcar en la emily (DC), Foot Care for People with Diabetes (DC), Basic Carbohydrate Counting (DC), Meal Planning with Diabetes Exchanges (DC), Chronic Hypertension (DC), Low-Sodium Diet (GEN), Hypertensive Crisis (IP), Hypertension (DC) Additional Instructions: FOLLOW UP WITH YOUR PRIMARY CARE PHYSICIAN FOR FURTHER DIABETIC EDUCATION AND SLEEP STUDY FOR CPAP NEEDS. PRESCRIPTIONS SENT TO PHARMACY. PLEASE TAKE ALL MEDICATIONS PRESCRIBED. IF YOU CONDITIONS WORSENS RETURN TO THE ED OR YOU MAY CONTACT YOUR PCP. Post Discharge Care Plan Care Plan Goals: Your Health Problems: HYPERTENSIVE CRISIS Goals to Promote Your Health: * To prevent worsening of your condition * To maintain your health at the optimal level Directions to Meet Your Goals: * Take your medications as prescribed * Follow your dietary instruction * Follow activity as directed * Keep your appointments as scheduled * Take your immunizations and boosters as scheduled * If your symptoms worsen call your PCP * If no PCP go to Urgent Care or Emergency Room Smoking is dangerous to your health. Avoid second hand smoke. You may reach the 24-hour crisis hotline for domestic abuse at . Status ED Status: Left Department Discharge Information Discharge Date/Time: 05/08/18 15:06
== END 2018-05-08 15:06 | disposition home or self-care (01) ==
LOC: NEDA 07:55 → NEPE 07:55 → HIMC 16:55 → N06 05-07 15:33
PROVIDERS: ADMIT Internal Medicine; ATTEND Internal Medicine